=== PATIENT | female | born 1980 | race African-American/Black ===

== ENCOUNTER 2023-06-20 12:59 | Emergency (ER) | payer SELFPAY ==
[2023-06-20 13:08] VITALS: BP 159/85
--- NOTE | 2023-06-20 15:18 | ED.GENMED ---
History of Present Illness
General
Chief Complaint: Swelling
Time Seen by Provider: 06/20/23 14:09
Travel History
Have you had any contact with someone who has COVID-19?: No
Do you have any symptoms of coronavirus? Fever > 100 degrees, chills, cough, shortness of breath, sore throat, loss of taste or smell, muscle aches, or headache?: No
History of Present Illness
History of Present Illness:
43-year-old female with history of rheumatoid arthritis and osteoarthritis of the left knee presents for evaluation of left knee swelling. She is requesting an arthrocentesis. She states that she is this has been done previously and she knows it
will benefit her. Denies any fevers or chills. Denies any new trauma.
Past History
Past History
ED Past Medical History: GERD and Other (rheumatoid arthritis)
ED Past Surgical History: None
Social History
Tobacco: Non-smoker
Alcohol: None
Drug: None
Personal: Single
Living: with family
Employment: Employed
Family History
Family History: Other
Review of Systems
Review of Systems
Allergies reviewed?: Yes
All Other Systems: ROS reviewed and negative except as documented in HPI and ROS
Phy Exam
Physical Exam
Physical Exam:
GEN: Well appearing, NAD, WDWN
HEENT: Oral mucosa moist, no scleral icterus
Cardiac: Regular rate
Lung: No respiratory distress, no tachypnea
MSK: No gross deformity or injuries, obvious left knee swelling, range of motion normal with pain
Skin: Good color, no pallor or jaundice, no rashes
Neuro: AO x3, moves all extremities freely
Psych: Calm, cooperative
Scores
Heart Failure Risk
Heart Failure Risk Score: Not Applicable
Course
Orders/Labs/Results
Orders:
Orders
06/20/23 13:11
Knee, Left 4 or More Views [CR Knee - Left 4 Or More View*] Urgent
Comment:
Reason For Exam: injury
06/20/23 15:21
Body Fluid Cell Count Urgent
What is the Body Fluid: joint
Date Specimen was Collected: 06/20/23
Time Specimen was Collected: 15:19
Comment: with DIFF
Body Fluid Crystals Urgent
What is the Body Fluid: joint
Date Specimen was Collected: 06/20/23
Time Specimen was Collected: 15:19
06/20/23 15:22
Fluid Culture with Gram Stain Urgent
HERBERT Source: Joint Fluid
Specimen Description:
Date Specimen was Collected: 06/20/23
Time Specimen was Collected: 15:19
Vital Signs
Initial and Last Documented VS:
Initial Vital Signs
Temp Pulse Resp BP Pulse Ox
98.2 F 91 16 159/85 98
06/20/23 13:08 06/20/23 13:08 06/20/23 13:08 06/20/23 13:08 06/20/23 13:08
Last Documented Vital Signs
Temp Pulse Resp BP Pulse Ox
98.2 F 91 16 159/85 98
06/20/23 13:08 06/20/23 13:08 06/20/23 13:08 06/20/23 13:08 06/20/23 13:08
Procedures
Incision/Drainage/Joint Aspiration
Left Knee:
Anethesia: 1% Lidocaine
Preparation: cleaned with Hibiclens
Type of procedure: aspiration
Nature of site: other (Joint, left knee)
How much fluid was obtained?: number in mls (55 mL)
Fluid description: straw colored
Treatment: bandaid applied
MDM/Problems Addressed
MDM/Problems Addressed:
Left knee aspirated for nearly 60 cc of fluid. Cell counts unremarkable for infection, no crystals seen.
*Critical Care Note
Total Time (30-74mins, 75-104mins- exclusive of procedures): Not Applicable
ED Attending Note
-
Portions of this chart may have been created with voice recognition software.� Occasional wrong word or��sound alike� substitutions may have occurred due to the inherent limitations of voice recognition software.
Discharge Plan
Departure
Patient Disposition: Home (Routine Discharge)
Date of Disposition: 06/20/23
Time of Disposition: 15:18
Patient with high blood pressure during this ER visit?: Yes
Discharge Problem:
Effusion of left knee
Instructions: Swollen Joints (DC)
Prescriptions:
No Action
No Current Medications
hydrocodone-acetaminophen 1 TABLET tablet
1 tab PO Q4HPRN PRN (Reason: pain) Qty: 10 0RF
amoxicillin-pot clavulanate [Augmentin] 1 EACH tablet
1 ea PO BID Qty: 13 0RF
ibuprofen 600 MG tablet
600 mg PO Q6 Qty: 30 0RF
cyclobenzaprine 10 MG tablet
10 mg PO HSPRN PRN (Reason: muscle tightness/spasms) Qty: 10 0RF
Referrals:
Kareen Gallagher MD [Family Provider] -
Interventions
Interventions:
*Risk Screen - Suicide Last Done: 06/20/23 13:08
*General Assessment Last Done: 06/20/23 13:08
*Neglect/Abuse Screening Last Done: 06/20/23 13:08
ED- Fall Risk Assessment Last Done: 06/20/23 15:25
*ED COVID-19 Vaccine History Last Done: 06/20/23 15:25
*Nursing Disposition Last Done: 06/20/23 15:25
ED- Cardiac Assessment Last Done: 06/20/23 15:25
ED- Pulmonary Assessment Last Done: 06/20/23 15:25
ED-Skin Assessment Last Done: 06/20/23 15:25
Discharge Date and Time
Discharge Date/Time: 06/20/23 15:26
[2023-06-20 16:04] LABS: Body Fluid Mononuclear 12.2 %; Body Fluid Polymorphonuclear 87.8 %; Body Fluid WBC 40510 /CUMM
[2023-06-20 16:07] LABS: Body Fluid Second Tech CF
== END 2023-06-20 15:26 | disposition home or self-care (01) ==
LOC: EMR 12:59
PROVIDERS: Physician Assistant; EMERGENCY PHYSICIAN Emergency Medicine; FAMILY PHYSICIAN Internal Medicine
DX: M25.462 Effusion, left knee (principal); R03.0 Elevated blood-pressure reading, without diagnosis of hypertension; K21.9 Gastro-esophageal reflux disease without esophagitis; M06.9 Rheumatoid arthritis, unspecified; Z88.1 Allergy status to other antibiotic agents; Z88.2 Allergy status to sulfonamides
CPT/HCPCS: 20610; 99283; 73564; 87015; 87070; 87205; 89051; 89060

== ENCOUNTER 2024-11-27 22:56 | Emergency (ER) | payer BC, SELFPAY ==
[2024-11-27 23:06] VITALS: BP 135/84
[2024-11-28 00:21] LABS: ALT (SGPT) 35 U/L (0-35); AST (SGOT) 20 U/L (14-36); Albumin 4.7 g/dl (3.5-5.0); Alkaline Phosphatase 87 U/L (38-126); Blood Urea Nitrogen 15 mg/dl (7-17); Calcium 9.8 mg/dl (8.4-10.2); Carbon Dioxide 21 mmol/L (22-30); Chloride 107 mmol/L (98-107); Glucose 100 mg/dl (70-99); Potassium 3.7 mmol/L (3.5-5.1); Sodium 139 mmol/L (135-145); Total Protein 8.8 g/dl (6.3-8.2); eGFR > 60.00
[2024-11-28 00:30] LABS: Hematocrit 35.9 % (37.0-47.0); Hemoglobin 11.2 g/dL (12.0-16.0); Mean Corp Hgb Conc. 31.2 g/dL (33.0-37.0); Mean Corpuscular Volume 72.2 fL (81.0-99.0); Nucleated Red Blood Cells % 0 %; Platelet Count 435 10^3/uL (130-400); Red Cell Dist. Width 20.0 % (11.5-14.5)
[2024-11-28] MEDS: ZOFRAN 4 MG IV (00:53)
--- NOTE | 2024-11-28 01:56 | ED.GENMED ---
History of Present Illness
General
Chief Complaint: Abdominal Symptoms
Source: patient
Exam Limitations: none
Time Seen by Provider: 11/28/24 01:28
Nursing documentation reviewed up to this point in time: agreed with
History of Present Illness
History of Present Illness:
Note:
CHIEF COMPLAINT(S)
- Persistent vomiting for a week accompanied by abdominal pain.
HISTORY OF PRESENT ILLNESS
The patient is a 44-year-old female with a known history of rheumatoid arthritis on biologics, anemia, who presents with persistent vomiting for the past week. She reports abdominal pain described as diffuse, primarily in the lower abdomen, and on
both sides, though recently more pronounced on the left side, which worsened following an episode of emesis today. She did note one episode of emesis that contained streaks of blood but denies any frantz blood denies any dark tarry stools or rectal
bleeding. The abdominal pain started 2 days ago and it is intermittent at times relieved with bowel movements. She has had daily episodes of diarrhea as well. The patient noted the symptoms began approximately Thursday at 1 PM after consuming orange
juice, which other individuals also consumed without issue, suggesting no food poisoning. She reports being unable to retain her rheumatoid arthritis medications due to vomiting and this has resulted in an increase in her chronic pain all over her
body. She denies respiratory symptoms but confirms recent diarrhea, and has experienced fevers ranging from 99�F to 102�F. She had similar episode last year when she was diagnosed with norovirus. She consulted her primary care physician via
telehealth and was prescribed Ondansetron for symptomatic relief but was advised to go to the ER because her pcp was concerned about severe dehydration. Patient has a follow up appointment scheduled with her PCP in one week.
CHRONIC MEDICAL CONDITIONS SIGNIFICANTLY AFFECTING CARE
- Rheumatoid arthritis
- Chronic pain requiring management with oxycodone
Patient follows with a pain management doctor
ALLERGIES
- Allergic to hydrocodone
MEDICATIONS
- Oxycodone 20 to 40 milligrams every 4 to 6 hours
REVIEW OF SYSTEMS
see HPI
PHYSICAL EXAM
- Nursing notes reviewed and vital signs reviewed.
General: Patient is well appearing and in no acute distress; non-toxic
Skin: Warm and dry, no rashes or lesions
Head: Normocephalic, atraumatic
Eyes: Sclera non-icteric. EOMs intact.
Cardiac: Regular rate and rhythm, no murmurs
Pulm: Normal respiratory effort, no wheezes, rales, or rhonchi
Abdomen: Abdomen soft, minimal tenderness noted on the lower left side
Neuro: CN II-XII intact, no focal neurologic deficits.
Psychiatric: Appropriate mood and affect.
PLAN
- Administer Toradol for pain management. If ineffective, trial Dilaudid as patient has higher pain tolerance.
- Consider CT scan to rule out diverticulitis or other acute abdominal pathology.
- Manage nausea with prescribed medications
- Evaluate the option of a GI cocktail for burning sensation in throat due to assumed reflux once nausea is under control.
DIFFERENTIAL DIAGNOSIS
The Differential Diagnosis includes, in no particular order and is not limited to:
1. Gastroenteritis
2. Diverticulitis
3. Small bowel obstruction
4. Peptic ulcer disease
5. Cholecystitis
6. Pancreatitis
7. Mesenteric ischemia
8. Ovarian pathology (e.g., torsion, cyst, ectopic )
9. Urolithiasis
10. Inflammatory bowel disease (e.g., Crohn�s disease, ulcerative colitis)
CARE-UPDATE
11/28/24 - 02:22
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 Due to increased tolerance, acetaminophen and other medications are ineffective for her pain management. Plan to administer 0.5 mg of Dilaudid
for pain relief.
11/28/24 - 03:54
Patient reports significant pain relief with current management. Plan includes proceeding with a CT scan for further evaluation and to rule out any underlying complications.
11/28/24 - 05:16
Minimal nausea currently. Zofran, prescribed by PCP last week, was ineffective. Patient finds Compazine administrated here effective for symptom relief.
07/14/25 - 05:34
The patients pain has recurred, possibly due to ongoing vomiting and likely related to patient's lack of taking her chronic pain medication due to vomiting. A review of the CAT scan showed no acute intra-abdominal issues. Concerns from her PCP led
to an ER referral for possible significant dehydration and suspicion of norovirus. Will administer another 0.5 of dilaudid. Will also give dose of protonix to help treat possible esophagitis/kvng rankin tear considering the small amount of blood
patient noticed in her emesis the other day as well as burning sensation in throat
MDM/DISPOSITION
his is a 44 year-old female with a past medical history of anemia, chronic pain on chronic narcotic medication, rheumatoid arthritis, he presents an emergency apartment with concerns of vomiting and diarrhea for the past week. She�s also had
intermittent pain in her abdomen as well. The pain did not start until recently. She�s had a few body aches and pains as well because patient has not been able to take her pain medication due to the vomiting. Zofran prescribed by her PCP has not
helped. In the ER, patient found relief of her nausea with Compazine and relief of her pain with Dilaudid. She is well appearing on exam. Her blood work is generally unremarkable. She want to get a CAT scan of the admin, which was negative for acute
intro abdominal pathology. Suspect possible norovirus/acute infectious enteritis with possible component of gastritis. Patient has a follow up appointment with her pcp in one week also discussed follow up with Gi. Patient unable to provide stool
sample here. Patient stable for discharge.
Past History
Past History
ED Past Medical History: GERD and Other (rheumatoid arthritis)
ED Past Surgical History: None
Social History
Tobacco: Non-smoker
Alcohol: None
Drug: None
Personal: Single
Living: with family
Employment: Employed
Family History
Family History: Other
Review of Systems
Review of Systems
All Other Systems: ROS reviewed and negative except as documented in HPI and ROS
Phy Exam
Physical Exam
Physical Exam:
see hpi
Course
Orders/Labs/Results
Orders:
Orders
11/27/24 23:59
CMP [Comprehensive Metabolic Panel] Urgent
Complete Blood Count/With Diff Urgent
HCG, Serum Qualitative Screen Urgent
Comment: ADD ON
Lipase Urgent
Comment: ADD ON
11/28/24 00:48
Ondansetron Injectable [Zofran] 4 mg .ROUTE .STK-MED ONE
11/28/24 00:53
Ondansetron Injectable [Zofran] 4 mg IV NOW STA
11/28/24 01:56
Add On- LAB Urgent
Tests Added?: lipase
11/28/24 02:05
Prochlorperazine [Compazine] 10 mg IV NOW STA
11/28/24 02:06
CT Abd/pelvis W Iv Cont Urgent
Comment:
Reason For Exam: llq pain
0.9% Sodium Chloride 1000 ml [Nss] 1,000 ml IV BOLUS
HYDROmorphone [Dilaudid] 0.5 mg IV NOW STA
11/28/24 03:10
Add On- LAB Urgent
Tests Added?: hcg qual
11/28/24 05:33
HYDROmorphone [Dilaudid] 0.5 mg IV NOW STA
Pantoprazole [Protonix IV] 40 mg IV NOW STA
Abnormal Lab Results
11/27/24
23:59
WBC 11.5 H 10^3/uL
(4.8-10.8)
Hgb 11.2 L g/dL
(12.0-16.0)
Hct 35.9 L %
(37.0-47.0)
MCV 72.2 L fL
(81.0-99.0)
MCH 22.5 L pg
(27.0-31.0)
MCHC 31.2 L g/dL
(33.0-37.0)
RDW 20.0 H %
(11.5-14.5)
Plt Count 435 H 10^3/uL
(130-400)
Abs Immat Gran (auto) 0.1 H 10^3/uL
(0-0.05)
Absolute Neuts (auto) 7.5 H 10^3/uL
(1.4-6.5)
Immature Gran % 1.1 H %
(0-0.5)
Carbon Dioxide 21 L mmol/L
(22-30)
Creatinine 1.1 H mg/dL
(0.6-1.0)
Glucose 100 H mg/dl
(70-99)
Total Protein 8.8 H g/dl
(6.3-8.2)
11/27/24 23:59
11/27/24 23:59
Vital Signs
Initial and Last Documented VS:
Initial Vital Signs
Temp Pulse Resp BP Pulse Ox
97.9 F 105 32 135/84 100
11/27/24 23:06 11/27/24 23:06 11/27/24 23:06 11/27/24 23:06 11/27/24 23:06
Last Documented Vital Signs
Temp Pulse Resp BP Pulse Ox
98.7 F 99 15 111/63 97
11/28/24 06:29 11/28/24 06:29 11/28/24 06:29 11/28/24 06:29 11/28/24 06:29
*Pulse Oximetry
SaO2: 100
Oxygen Mode of Delivery: Room air
Patient hypoxic: no
*Critical Care Note
Total Time (30-74mins, 75-104mins- exclusive of procedures): Not Applicable
ED Attending Note
-
Portions of this chart may have been created with voice recognition software.� Occasional wrong word or��sound alike� substitutions may have occurred due to the inherent limitations of voice recognition software.
Discharge Plan
Departure
Patient Disposition: Home (Routine Discharge)
Date of Disposition: 11/28/24
Time of Disposition: 06:12
Patient with high blood pressure during this ER visit?: Yes
Condition: Good
Discharge Problem:
Nausea & vomiting, Diarrhea
Instructions: Nausea and Vomiting, Adult (DC), Abdominal Pain, BLOOD PRESSURE
Prescriptions:
New
pantoprazole [Protonix] 20 mg tablet,delayed release (DR/EC)
20 mg PO DAILY 7 Days Qty: 7 0RF
prochlorperazine maleate [Compazine] 5 mg tablet
5 mg PO Q6H PRN (Reason: nausea and vomiting) Qty: 8 0RF
No Action
No Current Medications
hydrocodone-acetaminophen 1 TABLET tablet
1 tab PO Q4HPRN PRN (Reason: pain) Qty: 10 0RF
amoxicillin-pot clavulanate [Augmentin] 1 EACH tablet
1 ea PO BID Qty: 13 0RF
ibuprofen 600 MG tablet
600 mg PO Q6 Qty: 30 0RF
cyclobenzaprine 10 MG tablet
10 mg PO HSPRN PRN (Reason: muscle tightness/spasms) Qty: 10 0RF
minocycline
100 mg PO BID
oxycodone
20 mg PO Q4 PRN (Reason: pain)
Rx Instructions:
Pt takes 20-40 mg po q4hour prn
B-Vitamins
1 tab PO DAILY
Cosentyx
300 mg SC [id number]
Lasix
40 mg PO PRN PRN (Reason: swelling)
Mycostatin
1 applic SC DAILY
Rx Instructions:
to belly button
Robinul
2 mg PO DAILY
ciprofloxacin
500 mg PO DAILY
Rx Instructions:
only needs 2 more doses
Referrals:
Jackson Zarco MD [Active, Gastroenterology] - Call in 1-3 days for appt
Kareen Gallagher MD [Family Provider, Internal Medicine]
Activity Restrictions/Additional Instructions:
Protonix has been sent to your pharmacy. Please take 1 tablet once daily for 1 week. Compazine has also been sent to your pharmacy. You can take 1 tablet every 6 hours as needed for nausea and vomiting. Please continue stay well-hydrated and eat
small but frequent meals. Please follow-up with your primary care provider as scheduled.
Would also consider being evaluated by whale fisherman as an outpatient.
PLEASE RETURN EMERGENCY DEPARTMENT SHOULD YOU DEVELOP PERSISTENT FEVERS, INTRACTABLE NAUSEA OR VOMITING, INABILITY TO TOLERATE ORAL INTAKE, RECTAL BLEEDING, VOMITING BLOOD, DIZZINESS, LIGHTHEADEDNESS, CHEST PAIN, SHORTNESS OF BREATH, OR ANY OTHER
SIGNS OR SYMPTOMS WORRISOME TO YOU
Interventions
Interventions:
*Risk Screen - Suicide Last Done: 11/27/24 23:06
*General Assessment Last Done: 11/28/24 00:19
*Neglect/Abuse Screening Last Done: 11/27/24 23:06
*ED- Fall Risk Assessment Last Done: 11/27/24 23:06
*ED COVID-19 Vaccine History Last Done: 11/28/24 00:19
*Nursing Disposition Last Done: 11/28/24 06:29
XE-Tuzblf-Yqopykfqyt Assessment Last Done: 11/28/24 00:15
Discharge Date and Time
Discharge Date/Time: 11/28/24 06:25
Print Language: NEPALI
[2024-11-28] MEDS: COMPAZINE 10 MG IV (02:13)
[2024-11-28] MEDS: DILAUDID 0.5 MG IV ×2 (02:13→05:41)
[2024-11-28] MEDS: NSS 1000 IV (02:14)
[2024-11-28 02:28] VITALS: BP 126/64
[2024-11-28 02:32] LABS: Lipase 107 U/L (23-300)
[2024-11-28 03:43] LABS: HCG, Serum Qualitative Screen Negative
[2024-11-28 04:11] VITALS: BP 126/69
[2024-11-28] MEDS: PROTONIX IV 40 MG IV (05:41)
[2024-11-28 06:28] VITALS: BP 111/63
[2024-11-28 06:29] VITALS: BP 111/63
== END 2024-11-28 06:25 | disposition home or self-care (01) ==
LOC: EMR 22:56
PROVIDERS: EMERGENCY PHYSICIAN Emergency Medicine; FAMILY PHYSICIAN Internal Medicine
DX: R19.7 Diarrhea, unspecified (principal); R11.2 Nausea with vomiting, unspecified; K21.9 Gastro-esophageal reflux disease without esophagitis; M06.9 Rheumatoid arthritis, unspecified; Z88.5 Allergy status to narcotic agent
CPT/HCPCS: 99284; 96374; 96375; 96376; 74177; 80053; 83690; 84703; 85025; Q9967